=== PATIENT | female | born 1990 | race Caucasian/White ===

== ENCOUNTER 2016-11-15 15:52 | Emergency (ER) | payer OTHER ==
[2016-11-15 14:46] LABS: BASOPHILS 0.3 %; BASOPHILS ABSOLUTE 0.02 10/3/uL (0.0-0.16); EOSINOPHILS 0.8 %; EOSINOPHILS ABSOLUTE 0.06 10/3/uL (0.0-0.53); ER CBC TAT 0 Hrs 05 Mins; HEMATOCRIT 39.1 % (36.0-48.0); HEMOGLOBIN 12.6 g/dL (12.0-16.0); IMMATURE GRANULOCYTES 0.3 %; IMMATURE GRANULOCYTES ABSOLUTE 0.02 10/3/uL (0.0-0.11); LYMPHOCYTES 27.2 %; MEAN CORPUS HGB CONC 32.2 g/dL (32.0-36.0); MEAN CORPUSCULAR HEMOGLOB 27.3 pg (26.0-34.0); MEAN PLATELET VOLUME 10.7 fL (9.2-13.0); MONOCYTES 5.2 %; MONOCYTES ABSOLUTE 0.38 10/3/uL (0.21-1.20); NEUTROPHILS 66.2 %; NEUTROPHILS ABSOLUTE 4.86 10/3/uL (2.02-8.40); PLATELET COUNT 259 10/3/uL (150-400); RBC DISTRIBUTION WIDTH 13.3 % (12.0-16.0); RED CELL COUNT 4.61 10/6/uL (4.0-5.6); WHITE BLOOD CELLS 7.3 10/3/uL (4.5-10.5)
[2016-11-15 14:47] LABS: MANUAL DIFF NO %; MEAN CORPUSCULAR VOLUME 84.8 fL (80-100)
[2016-11-15 14:54] LABS: WBC (NOT ORDERED) (RFLEX) 0 (0-5)
[2016-11-15 15:02] LABS: A/G RATIO 0.9 (0.7-1.9); ALBUMIN 3.4 G/DL (3.5-5.0); CALCIUM, SERUM 8.9 MG/DL (8.5-10.4); CHLORIDE, SERUM 110 MMOL/L (96-112); CO2 (CARBON DIOXIDE) 31 MMOL/L (24-34); CREATININE 1.15 MG/DL (0.55-1.02); GFR AFRICAN AMERICAN 76 ML/MIN (>=60); GFR NON AFRICAN AMERICAN 66 ML/MIN (>=60); GLOBULIN 3.9 G/DL (2.5-4.1); GLUCOSE, SERUM 96 MG/DL (60-99); POTASSIUM, SERUM 3.8 MMOL/L (3.5-5.3); SGOT(AST) 17 U/L (5-40); SGPT(ALT) 43 U/L (5-65); SODIUM, SERUM 143 MMOL/L (135-148); TOTAL BILIRUBIN 0.6 MG/DL (0-1.2); TOTAL PROTEIN 7.3 G/DL (6.0-8.5)
[2016-11-15 15:04] LABS: ALKALINE PHOSPHATASE 108 U/L (45-117); BUN (BLOOD UREA NITROGEN) 8 MG/DL (6-23)
[2016-11-15 15:08] LABS: ASCORBIC ACID (UR NOT ORDER) NEG (NEG); BILIRUBIN, URINE NEGATIVE (NEG); ER URINALYSIS TAT 0 Hrs 15 Mins; KETONE, URINE TRACE MG/DL (NEG); LEUKOCYTE ESTERASE(NOT OR NEG (NEG); NITRITE (URINE) NEG (NEG)
[~2016-11-15 15:52] MED LIST: ACCUNEB INH
== END 2016-11-15 15:59 | disposition home or self-care (01) ==
LOC: ER 15:52
PROVIDERS: Nurse Practitioner Acute Care
DX: R10.9 Unspecified abdominal pain (principal); L50.9 Urticaria, unspecified; J45.909 Unspecified asthma, uncomplicated; F31.9 Bipolar disorder, unspecified; Z88.0 Allergy status to penicillin; Z88.5 Allergy status to narcotic agent; Z79.899 Other long term (current) drug therapy
CPT/HCPCS: 80053; 81001; 83690; 84703; 85025; 96372; 99284